=== PATIENT | female | born 1995 | race African-American/Black ===

== ENCOUNTER 2020-09-22 20:14 | Inpatient (IN) | payer MEDICAID ==
[~2020-09-22] VITALS: Ht 162.6 cm; Wt 65.8 kg
[~2020-09-22 20:14] MED LIST: FERR325C PO; IBUP-779 PO; MULT-1146 PO
[2020-09-22] MEDS ORDERED: LIDOCAINE HCL 1% 20ML VIAL (Pyxis) INJ INFIL SCH (21:00)
[2020-09-22] MEDS ORDERED: NALOXONE HCL 0.4 MG/ML 1ML VIAL IM PRN (21:00)
[2020-09-22] MEDS ORDERED: CARBOPROST TROMETHAMINE 250 MCG/ML AMPUL IM PRN (21:00)
[2020-09-22] MEDS ORDERED: METHYLERGONOVINE MALEATE 0.2 MG/ML IM PRN ×2 (21:00→22:00)
[2020-09-22] MEDS ORDERED: BUTORPHANOL TARTRATE 2 MG/ML VIAL IV PRN ×2 (21:00→22:45)
[2020-09-22] MEDS ORDERED: PENICILLIN G POTASSIUM 5 MMU in DEXT 5% WATER 100 ML IV SCH (21:00)
[2020-09-22] MEDS ORDERED: DEXT 5%/LR + PITOCIN 20UNITS/L 1,000 ML IV SCH ×2 (21:00→22:00)
[2020-09-22] MEDS ORDERED: LACTATED RINGERS 1,000 ML IV SCH (21:00)
[2020-09-22] MEDS ORDERED: ROPIVACAINE HCL/PF EPIDURAL 200 ML EPI SCH (21:15)
[2020-09-22 21:59] LABS: *COCAINE SCREEN URINE NEGATIVE (NEGATIVE); CLARITY URINE CLEAR (CLEAR); COLOR URINE YELLOW (YELLOW); KETONES URINE NEGATIVE (NEGATIVE); LEUKOCYTE ESTERASE URINE 2+ (NEGATIVE); NITRITE URINE NEGATIVE (NEGATIVE); OCCULT BLOOD URINE 3+ (NEGATIVE); PROTEIN URINE NEGATIVE (NEGATIVE); SPECIFIC GRAVITY URINE 1.011 (1.005-1.030)
[2020-09-22 22:00] LABS: *AMPHETAMINES SCREEN URINE NEGATIVE (NEGATIVE); *BARBITURATES SCREEN URINE NEGATIVE (NEGATIVE); CANNABINOID URINE SCREEN NEGATIVE (NEGATIVE); METHADONE URINE SCREEN NEGATIVE (NEGATIVE); OPIATES URINE SCREEN NEGATIVE (NEGATIVE); PHENCYCLIDINE URINE SCREEN NEGATIVE (NEGATIVE)
[2020-09-22] MEDS ORDERED: IBUPROFEN 400MG TABLET PO PRN (22:00)
[2020-09-22] MEDS ORDERED: LANOLIN OINT 7GM TUBE TOP PRN (22:00)
[2020-09-22] MEDS ORDERED: RHO(D) IMMUNE GLOBULIN 300 MCG/SYR IM PRN (22:00)
[2020-09-22 22:01] LABS: *BENZODIAZEPINES SCREEN URINE NEGATIVE (NEGATIVE)
[2020-09-22 22:03] LABS: BASOPHILS % 0.2 % (0.0-2.0); EOSINOPHILS % 0.1 % (0.0-5.0); HEMATOCRIT. 29.7 % (36.0-48.0); HEMOGLOBIN. 9.8 g/dL (12.0-16.0); LYMPHOCYTES % 15.5 % (20.0-50.0); MEAN CORPUSCULAR HEMOGLOBIN 27.5 pg (28.0-32.0); MEAN CORPUSCULAR VOLUME 83.5 fL (81.0-99.0); MEAN PLATELET VOLUME 7.5 fl (7.4-10.4); MONOCYTES % 7.2 % (2.0-8.0); PLATELET 303 x1000/uL (130-400); RED BLOOD CELL COUNT 3.56 mill/uL (4.2-5.4)
[2020-09-22 22:09] LABS: INR 0.9; PARTIAL THROMBOPLASTIN TIME 25.3 sec (23.4-31.0); PROTHROMBIN TIME 10.1 sec (9.6-11.0)
[2020-09-22 22:32] LABS: HEPATITIS B SURFACE ANTIGEN NEGATIVE
[2020-09-22 23:40] VITALS: BP 128/82
[2020-09-23 00:10] VITALS: BP 116/73
[2020-09-23 00:50] VITALS: BP 116/78
[2020-09-23] MEDS: IBUPROFEN 800MG TABLET PO PRN ×3 (00:56→21:16)
[2020-09-23] MEDS ORDERED: PENICILLIN G POTASSIUM 2.5 MMU in DEXTROSE 5% WATER 50 ML IV SCH (01:00)
[2020-09-23 05:30] VITALS: BP 110/64
[2020-09-23 07:15] LABS: BASOPHILS % 0.1 % (0.0-2.0); EOSINOPHILS % 0.1 % (0.0-5.0); HEMOGLOBIN. 9.4 g/dL (12.0-16.0); LYMPHOCYTES % 11.4 % (20.0-50.0); MEAN CORPUSCULAR VOLUME 83.5 fL (81.0-99.0); MEAN PLATELET VOLUME 7.1 fl (7.4-10.4); MONOCYTES % 8.1 % (2.0-8.0); NEUTROPHILS % 80.3 % (40.0-76.0); PLATELET 259 x1000/uL (130-400); RED BLOOD CELL COUNT 3.35 mill/uL (4.2-5.4); RED CELL DISTRIBUTION WIDTH 14.5 % (11.6-14.6)
[2020-09-23 08:00] VITALS: BP 96/60
[2020-09-23] MEDS: PRENATAL VIT/FE FUMARATE/FA TABLET PO SCH (08:24)
[2020-09-23 15:02] VITALS: BP 121/59
[2020-09-23 20:00] VITALS: BP 105/60
[2020-09-24] MEDS ORDERED: IBUP-2030 PO (00:39)
[2020-09-24 04:30] VITALS: BP 102/64
[2020-09-24 07:36] VITALS: BP 102/61
[2020-09-24] MEDS: PRENATAL VIT/FE FUMARATE/FA TABLET PO SCH (08:48)
[2020-09-24] MEDS: IBUPROFEN 800MG TABLET PO PRN (08:49)
== END 2020-09-24 13:00 | disposition home or self-care (01) | DRG 560 ==
LOC: OBSVTOIN 20:14 → 8 EST LDRP 20:14 → 8EST 23:33
PROVIDERS: ADMIT Obstetrics & Gynecology; ATTEND Obstetrics & Gynecology
PROC: 10E0XZZ Delivery of Products of Conception, External Approach (ICD-10-PCS; principal; 2020-09-22)
DX: O99.03 Anemia complicating the puerperium (principal); D62 Acute posthemorrhagic anemia; Z37.0 Single live birth; Z3A.38 38 weeks gestation of pregnancy
CPT/HCPCS: 36415; 80305; 81003; 85025; 86592; 86703; 86762; 86850; 86900; 87340; 99281; G0378; J0595; J2540; J2590; J3490; J7060